=== PATIENT | male | born 1985 | race Caucasian/White ===

== ENCOUNTER 2016-10-22 00:20 | Emergency (ER) | payer OTHER ==
[~2016-10-22] VITALS: Ht 177.8 cm; Wt 99.2 kg
[~2016-10-22 00:20] MED LIST: FACT1KIT IV.
[2016-10-22 00:24] VITALS: TEMP 36.3; Ht 177.8 cm; Wt 99.2 kg
[2016-10-22] MEDS ORDERED: OXYCODONE HCL IR 5 MG TAB (IMMEDIATE RELEASE) PO STA (00:40)
[2016-10-22] MEDS ORDERED: KETOROLAC TROMETHAMINE 60 MG/2 ML VIAL IM STA (00:40)
--- NOTE | 2016-10-22 00:41 | EMERGENCY ROOM VISIT NOTE ---
History Report prepared by Shanaibsade: Duyen Edwards Under the Supervision of: Dr. Jasmyn Huber D.O. First contact with patient: 00:29 Chief Complaint: ALLERGIC REACTION Stated Complaint: ALLERGIC REACTION TO JALAPENOS - HANDS Nursing Triage Summary: Patient ambulatory to triage with an upright and steady gait. Patient has ice packs on his hands. Patient states "While preparing dinner, I cut a lot of jalepenos. About an hour afterwards, my hands started feeling like they're on fire. I took a zyrtec, 1/2 of a percocet, poured alcohol over them, ran them under cold water, put olive oil on them, put ice on them...nothing is helping. My hands are burning and hurting so bad." Patient admits to pouring bleach and windex over his hands as well as applying hemorrhoid cream to them. History of Present Illness The patient is a 31 year old male who presents to the Emergency Room with complaints of constant burning sensation pain to hands from an allergic reaction to jalepenos occurring just prior to arrival. The patient was cutting jalepenos for dinner. After and hour later he began to experience a burning sensation to his hands. He states "my hands feel on fire". The patient notes he tried Zyrtec, 1/2 Percocet, pouring alcohol on, cold water, olive oil, ice, bleach, Windex, and hemorrhoid cream. He notes that cold water and ice are the only items to help subside the burning sensation. He denies any other symptoms at this time. Source of History: patient Onset: just BLEACH [employer]QUOR [employer]KER Position: hand (bilateral) Quality: burning Timing: constant Note: He denies any other symptoms at this time. Review of Systems See HPI for pertinent positives & negatives. A total of 10 systems reviewed and were otherwise negative. Past Medical & Surgical Medical Problems: (1) Hemophilia (2) Hemophilia A Surgical Problems: (1) History of wisdom tooth extraction Family History Patient reports no known family medical history. Social History Smoking Status: Never Smoker Alcohol Use: occasionally Marital Status: single Occupation Status: [employer] student Current/Historical Medications Scheduled Antihemophilic Factor (Recomb) (Eloctate), 4,400 UNITS IV Q4DAYS Allergies Uncoded Allergies: IV MORPHINE (Allergy, Mild, HIVES AT IV SITE, 10/22/16) Physical Exam Vital Signs Date Time Temp Pulse Resp B/P Pulse Ox O2 Delivery O2 Flow Rate FiO2 10/22/16 01:31 66 20 134/86 99 Room Air 10/22/16 00:24 36.3 69 16 123/90 99 Room Air 10/22/16 00:24 99 Room Air Physical Exam HEENT: Head - normocephalic and atraumatic Pupils are equal, round, and reactive to light. Extraocular eye muscles are intact, and sclera are anicteric. Nose - moist nasal mucosa without discharge. Mouth - moist buccal mucosa. Oropharynx is nonerythematous and there is no tonsillar exudate or edema noted. Neck: Supple; no JVD, nuchal rigidity, cervical lymphadenopathy. Heart: Regular rate and rhythm. There is a normal S1 and S2 with no murmurs, clicks, or gallops appreciated. Lungs: Clear to auscultation bilaterally with no wheezes, rales, or rhonchi. Abdomen: Soft, completely nontender, nondistended, with good bowel sounds. There are no palpable pulsatile masses or hepatosplenomegaly. There is no guarding, rigidity, or rebound noted. Extremities: Hands are blanched white, shriveled up from exposure to water, cold to touch as he has been holding ice pack. No evidence of cyanosis, clubbing , or edema. There are easily palpable peripheral pulses. Skin: warm and dry with good turgor and no rashes. Medical Decision & Procedures Medications Administered Medications (Trade) Dose Ordered Sig/Ashleigh Route Start Time Stop Time Status Last Admin Dose Admin Ketorolac Tromethamine (Toradol Inj) 60 mg NOW STAT IM 10/22/16 00:40 10/22/16 00:41 DC 10/22/16 00:47 60 MG Oxycodone HCl (Roxicodone Immediate Rel Tab) 5 mg NOW STAT PO 10/22/16 00:40 10/22/16 00:41 DC 10/22/16 00:47 5 MG Diphenhydramine HCl (Benadryl Inj) 50 mg NOW STAT IM 10/22/16 01:23 10/22/16 01:24 DC 10/22/16 01:28 50 MG Procedure Roxicodone Immediate Rel Tab 5 mg PO, Toradol Inj 60 mg IM,Benadryl Inj 50 mg IM. ED Course 0034: Past medical records reviewed. The patient was evaluated in room B9. A complete history and physical exam was performed. 0040: Roxicodone Immediate Rel Tab 5 mg PO, Toradol Inj 60 mg IM. 0121: The patient is having no relief of his symptoms. 0123: Benadryl Inj 50 mg IM. The patient noted only to have slight improvement in symptoms. We then applied milk to the patient's hands as an antidote to the capsaicin. This did seem to give the patient moderate relief of the symptoms. 0145: Upon reevaluation, hemodynamically stable. I discussed findings and results with him. He verbalized agreement of the treatment plan. He was discharged home. Medical Decision The patient is a 31 year old male who presents to the ED with an allergic reaction. Differential diagnosis includes chemical burn, watson bite. This is a 31-year-old male patient who was cutting jalapeno peppers when he developed severe burning to both of his hands. The patient tried multiple home remedies to treat the symptoms but was unsuccessful. He did have his hand submerged in ice water for extended. A time and they were shriveled up but no obvious signs of watson no watson bite. The patient got moderately for the symptoms here in the emergency department after receiving IM Benadryl and some in his hands and milk. Impression Primary Impression: Allergic reaction Scribe Attestation The scribe's documentation has been prepared under my direction and personally reviewed by me in its entirety. I confirm that the note above accurately reflects all work, treatment, procedures, and medical decision making performed by me. Departure Information Dispostion Home / Self-Care Referrals Saud Odom M.D. (PCP) Forms HOME CARE DOCUMENTATION FORM, IMPORTANT VISIT INFORMATION Patient Instructions My [facility] Additional Instructions Rest You can use motrin and/or benadryl for continued burning.
[2016-10-22] MEDS ORDERED: DiphenhydrAMINE HCL 50 MG/ML VIAL IM STA (01:23)
[2016-10-22 01:31] VITALS: BP 134/86; PULSE 66; O2SAT 99
[2016-10-22] MEDS ORDERED: ANTI IV (01:32)
== END 2016-10-22 02:04 | disposition home or self-care (01) ==
LOC: C.EDB 00:21
DX: T78.40XA Allergy, unspecified, initial encounter (principal); X58.XXXA Exposure to other specified factors, initial encounter; D66 Hereditary factor VIII deficiency; Z79.899 Other long term (current) drug therapy

== ENCOUNTER → 2017-08-11 | Outpatient (CLI) | payer OTHER ==
[~2017-08-11] MED LIST changes: +ANTI IV; -FACT1KIT IV.
== END | disposition home or self-care (01) ==
LOC: C.PATHSPEC 15:52
PROVIDERS: ATTEND Ophthalmology
DX: H02.821 Cysts of right upper eyelid (principal); H02.89 Other specified disorders of eyelid

== ENCOUNTER 2017-09-14 11:47 | Emergency (ER) | payer OTHER ==
[~2017-09-14] VITALS: Ht 177.8 cm; Wt 88.0 kg
[2017-09-14 11:58] VITALS: TEMP 36.8; Ht 177.8 cm; Wt 88.0 kg
[2017-09-14] MEDS ORDERED: MULTTAB58 PO (12:08)
[2017-09-14] MEDS ORDERED: FACT1KIT IV (12:08)
[2017-09-14] MEDS ORDERED: CITA20TA4 PO (12:08)
[2017-09-14] MEDS ORDERED: FACTOR 8 IV (12:10)
[2017-09-14 12:57] LABS: BASO % 0.5 %; BASO ABS # 0.03 K/uL (0-0.2); EOS % 3.8 %; EOS ABS # 0.25 K/uL (0-0.5); HEMATOCRIT 45.1 % (42-52); HEMOGLOBIN 15.8 g/dL (14.0-18.0); IG# 0.07 K/uL (0.00-0.02); LYMPH % 31.7 %; LYMPH ABS # 2.09 K/uL (1.2-3.4); MEAN CELL VOLUME 85.4 fL (80-100); MEAN CORPUSCULAR HEMOGLOBIN 29.9 pg (25-34); MEAN PLATELET VOLUME 10.6 fL (7.4-10.4); MONO % 7.3 %; MONO ABS # 0.48 K/uL (0.11-0.59); NEUT % 55.6 %; NEUT ABS # 3.68 K/uL (1.4-6.5); PLATELET COUNT 186 K/uL (130-400); RED CELL DISTRIBUTION WIDTH SD 40.6 fL (36.4-46.3)
[2017-09-14 13:11] LABS: CALCIUM 9.4 mg/dl (8.5-10.1); CREATININE 1.03 mg/dl (0.60-1.40); POTASSIUM 3.9 mmol/L (3.5-5.1); PTT PATIENT 37.3 SECONDS (21.0-31.0)
[2017-09-14 13:15] LABS: TOTAL PROTEIN 7.9 gm/dl (6.4-8.2)
--- NOTE | 2017-09-14 13:36 | DIAGNOSTIC IMAGING REPORT ---
ABDOMEN LIMITED (US) CLINICAL HISTORY: 32 years-old Male presenting with l lower back pain ? hematoma . TECHNIQUE: Real-time grayscale Doppler ultrasound imaging of the left lower back/flank was performed for a focused evaluation at the site of clinical concern. Color Doppler ultrasound imaging was also performed. COMPARISON: None. FINDINGS: At the site of clinical concern in the left lower back, no sonographic abnormality. No hyperemia on color Doppler. No fluid. No evidence of hematoma. Normal echogenicity of the musculature and subcutaneous fat. IMPRESSION: 1. No sonographic abnormality at the site of clinical concern. Electronically signed by: Wayne Ortiz M.D. 09/14/2017 1:35 PM Dictated Date/Time: 09/14/2017 1:34 PM
[2017-09-14] MEDS ORDERED: OPTIRAY 320 IV PRN (13:45)
--- NOTE | 2017-09-14 14:25 | DIAGNOSTIC IMAGING REPORT ---
ABDOMEN AND PELVIS CT WITH IV CONTRAST CT DOSE: 454.44 mGy.cm HISTORY: Acute left-sided low back pain L lower back pain. hemoph A TECHNIQUE: Multiaxial CT images of the abdomen and pelvis were performed following the use of intravenous contrast. A dose lowering technique was utilized adhering to the principles of ALARA. COMPARISON STUDY: Abdominal ultrasound of same day. FINDINGS: Mild dependent subsegmental bibasilar atelectasis. There is no pneumatosis or pneumoperitoneum identified. The imaged inferior cardiac chambers are unremarkable. Trace pericardial effusion. Gallbladder is mildly contracted. The liver, spleen, pancreas and adrenal glands are within normal limits. Kidneys, ureters and bladder are unremarkable. Aorta is normal in course and caliber. No bulky adenopathy. No bowel obstruction or focal bowel wall thickening. The appendix appears normal. No ascites or mesenteric inflammatory changes. Tiny fat filled periumbilical hernia. The bones appear intact. IMPRESSION: 1. No acute intra-abdominal or intrapelvic abnormality identified. Normal appendix. 2. No bowel obstruction or focal bowel wall thickening. Electronically signed by: Chance Brooks M.D. 09/14/2017 2:24 PM Dictated Date/Time: 09/14/2017 2:09 PM
[2017-09-14] MEDS ORDERED: CYCL10TA6 PO (15:04)
[2017-09-14] MEDS ORDERED: PRED50TA PO (15:04)
[2017-09-14 15:16] VITALS: BP 111/80; PULSE 66; O2SAT 97
--- NOTE | 2017-09-14 15:22 | EMERGENCY ROOM VISIT NOTE ---
History Report prepared by Madelyn: Brian Frazier Under the Supervision of: Dr. Ricky Parr D.O. First contact with patient: 12:20 Chief Complaint: PAIN (GENERALIZED) Stated Complaint: SEVERE HEMOPHILIA A, MUSCLE PAIN History of Present Illness The patient is a 32 year old male who presents to the Emergency Room with complaints of constant lower back pain beginning four days ago. He has a history of Hemophilia A. The patient states that he used the elliptical for the first time in a long time four days ago and believes he strained his back. He states that his pain continued the next day, so he took his normal dose of 4600 units of Eloctate. He took another dose of factor two days ago. His pain improved yesterday, and returned today. The patient denies recent falls or trauma. He states that his symptoms are identical with previous bleeding pain he has had in the past. He has had 5-6 bouts of "significant" internal bleeding in the past. Pt denies headache, dizziness, fevers, chest pain, shortness of breath, nausea, vomiting, diarrhea, pain with urination, and melena. Nothing has improved his pain. Source of History: patient Onset: Four days ago Position: back (lower) Quality: other (identical with previous bleeding pain) Timing: constant Modifying Factors (Relieving): other (none) Associated Symptoms: No fevers, No headache, No chest pain, No SOB, No nausea, No vomiting, No melena, No diarrhea, No urinary symptoms Review of Systems See HPI for pertinent positives & negatives. A total of 10 systems reviewed and were otherwise negative. Past Medical & Surgical Medical Problems: (1) Hemophilia (2) Hemophilia A Surgical Problems: (1) History of wisdom tooth extraction Family History Patient reports no known family medical history. Social History Smoking Status: Never Smoker Alcohol Use: occasionally Marital Status: single Occupation Status: [employer] student Current/Historical Medications Scheduled Citalopram Hydrobromide (Citalopram Hydrobromide), 20 MG PO DAILY Cyclobenzaprine Hcl (Flexeril), 5 MG PO TID Multiple Vitamin (Multivitamin), 1 TAB PO Q2D Prednisone (Prednisone), 50 MG PO DAILY [Factor 8], 1 DOSE IV Q4DAYS Allergies Uncoded Allergies: IV MORPHINE (Allergy, Mild, HIVES AT IV SITE, 10/22/16) Physical Exam Vital Signs Date Time Temp Pulse Resp B/P (MAP) Pulse Ox O2 Delivery O2 Flow Rate FiO2 09/14/17 15:16 66 20 111/80 97 09/14/17 13:40 74 18 121/79 97 Room Air 09/14/17 11:58 36.8 72 16 137/83 96 Room Air Physical Exam GENERAL: Sitting up on edge of bed, alert, well appearing, well nourished, no distress, non-toxic EYE EXAM: normal conjunctiva. OROPHARYNX: no exudate, no erythema, lips, buccal mucosa, and tongue normal and mucous membranes are moist NECK: supple, no nuchal rigidity, no adenopathy, non-tender LUNGS: Clear to auscultation. Normal chest wall mechanics HEART: no murmurs, S1 normal and S2 normal ABDOMEN: abdomen soft, non-tender, normo-active bowel sounds, no masses, no rebound or guarding. BACK: mild left lower paraspinal tenderness on exam. SKIN: no rashes and no bruising UPPER EXTREMITIES: upper extremities are grossly normal. LOWER EXTREMITIES: No pitting edema. NEURO EXAM: Normal sensorium, cranial nerves II-XII grossly intact, normal speech, no gross weakness of arms, no gross weakness of legs. Medical Decision & Procedures ER Provider Diagnostic Interpretation: Radiology results as stated below per my review and the radiologist's interpretation: ABDOMEN LIMITED (US) FINDINGS: At the site of clinical concern in the left lower back, no sonographic abnormality. No hyperemia on color Doppler. No fluid. No evidence of hematoma. Normal echogenicity of the musculature and subcutaneous fat. IMPRESSION: 1. No sonographic abnormality at the site of clinical concern. Electronically signed by: Wayne Ortiz M.D. 09/14/2017 1:35 PM A[address]OMEN AND PELVIS CT WITH IV CONTRAST FINDINGS: Mild dependent subsegmental bibasilar atelectasis. There is no pneumatosis or pneumoperitoneum identified. The imaged inferior cardiac chambers are unremarkable. Trace pericardial effusion. Gallbladder is mildly contracted. The liver, spleen, pancreas and adrenal glands are within normal limits. Kidneys, ureters and bladder are unremarkable. Aorta is normal in course and caliber. No bulky adenopathy. No bowel obstruction or focal bowel wall thickening. The appendix appears normal. No ascites or mesenteric inflammatory changes. Tiny fat filled periumbilical hernia. The bones appear intact. IMPRESSION: 1. No acute intra-abdominal or intrapelvic abnormality identified. Normal appendix. 2. No bowel obstruction or focal bowel wall thickening. Electronically signed by: Chance Brooks M.D. 09/14/2017 2:24 PM Laboratory Results 09/14/17 12:40 Red Blood Count 5.28, Mean Corpuscular Volume 85.4, Mean Corpuscular Hemoglobin 29.9, Mean Corpuscular Hemoglobin Concent 35.0, Mean Platelet Volume 10.6, Neutrophils (%) (Auto) 55.6, Lymphocytes (%) (Auto) 31.7, Monocytes (%) (Auto) 7.3, Eosinophils (%) (Auto) 3.8, Basophils (%) (Auto) 0.5, Neutrophils # (Auto) 3.68, Lymphocytes # (Auto) 2.09, Monocytes # (Auto) 0.48, Eosinophils # (Auto) 0.25, Basophils # (Auto) 0.03 09/14/17 12:40 Test 09/14/17 12:40 09/14/17 13:35 White Blood Count 6.60 K/uL (4.8-10.8) Red Blood Count 5.28 M/uL (4.7-6.1) Hemoglobin 15.8 g/dL (14.0-18.0) Hematocrit 45.1 % (42-52) Mean Corpuscular Volume 85.4 fL (80-100) Mean Corpuscular Hemoglobin 29.9 pg (25-34) Mean Corpuscular Hemoglobin Concent 35.0 g/dl (32-36) Platelet Count 186 K/uL (130-400) Mean Platelet Volume 10.6 fL (7.4-10.4) Neutrophils (%) (Auto) 55.6 % Lymphocytes (%) (Auto) 31.7 % Monocytes (%) (Auto) 7.3 % Eosinophils (%) (Auto) 3.8 % Basophils (%) (Auto) 0.5 % Neutrophils # (Auto) 3.68 K/uL (1.4-6.5) Lymphocytes # (Auto) 2.09 K/uL (1.2-3.4) Monocytes # (Auto) 0.48 K/uL (0.11-0.59) Eosinophils # (Auto) 0.25 K/uL (0-0.5) Basophils # (Auto) 0.03 K/uL (0-0.2) RDW Standard Deviation 40.6 fL (36.4-46.3) RDW Coefficient of Variation 13.0 % (11.5-14.5) Immature Granulocyte % (Auto) 1.1 % Immature Granulocyte # (Auto) 0.07 K/uL (0.00-0.02) Prothrombin Time 10.7 SECONDS (9.0-12.0) Prothromb Time International Ratio 1.0 (0.9-1.1) Activated Partial Thromboplast Time 37.3 SECONDS (21.0-31.0) Partial Thromboplastin Ratio 1.4 Anion Gap 5.0 mmol/L (3-11) Est Creatinine Clear Calc Drug Dose 115.0 ml/min Estimated GFR () 110.9 Estimated GFR (Non- 95.7 BUN/Creatinine Ratio 10.1 (10-20) Calcium Level 9.4 mg/dl (8.5-10.1) Total Bilirubin 0.9 mg/dl (0.2-1) Direct Bilirubin 0.2 mg/dl (0-0.2) Aspartate Amino Transf (AST/SGOT) 17 U/L (15-37) Alanine Aminotransferase (ALT/SGPT) 23 U/L (12-78) Alkaline Phosphatase 66 U/L (45-117) Total Protein 7.9 gm/dl (6.4-8.2) Albumin 4.0 gm/dl (3.4-5.0) Lipase 124 U/L (73-393) Urine Color YELLOW Urine Appearance CLEAR (CLEAR) Urine pH 5.5 (4.5-7.5) Urine Specific [place] >= 1.030 (1.000-1.030) Urine Protein NEG (NEG) Urine Glucose (UA) NEG (NEG) Urine Ketones NEG (NEG) Urine Occult Blood NEG (NEG) Urine Nitrite NEG (NEG) Urine Bilirubin NEG (NEG) Urine Urobilinogen NEG (NEG) Urine Leukocyte Esterase NEG (NEG) Laboratory results per my review. Medications Administered Medications (Trade) Dose Ordered Sig/Ashleigh Route Start Time Stop Time Status Last Admin Dose Admin Prednisone (PredniSONE TAB) 60 mg NOW STAT PO 09/14/17 15:05 09/14/17 15:06 DC 09/14/17 15:10 60 MG ED Course ED COURSE: Vital signs were reviewed and appeared normal. The patients medical record was reviewed The above diagnostic studies were performed and reviewed. ED treatments and interventions as stated above. 1223: The patient was evaluated in room B2. A complete history and physical examination was performed. 1430: I reviewed the patient's imaging studies with the radiologist. 1500: Upon reevaluation, the patient is resting comfortably. I discussed my findings with the patient and he understands and agrees with the treatment plan. Based on the patients age, coexisting illnesses, exam and lab findings the decision to treat as an outpatient was made. The patient remained stable while under my care. The patient appeared well at the time of discharge. Medical Decision Differential diagnoses includes but is not limited to lumbar radiculopathy, kidney stone, muscle strain, facture, cauda equina, mass, and disc herniation. Patient is a 32-year-old male who was on the elliptical on Tuesday and felt a severe sharp pain in his left lower back. He is a hemophilia type a less than 1 % who has been giving himself factor VIII on Tuesday and Tuesday. He did have some improvement with this. He was referred in by his physician at [facility]. Recommended ultrasound and CT. Both were negative. CBC along with BMP, LFTs, bilirubin lipase are unremarkable. PTT was elevated as expected. No pain meds given as patient had to drive. He was discharged after discussion with his hemophiliac DrIsa on Flexeril and steroids. No signs of cauda equina. No numbness in his groin. No weakness in the legs. He will follow-up as an outpatient as I favor this likely muscle skeletal in origin with a negative CT and ultrasound. Discussed with Pt concerning signs and symptoms to watch out for. Pt was instructed to follow up with their PCP and discussed with the patient their option to return to the ED at anytime for persistent or worsening symptoms. The appropriate anticipatory guidance and out- patient management, including indications for return to the emergency department , were explained at length to the patient and understood. Medication Reconcilliation Current Medication List: was personally reviewed by me Blood Pressure Screening Patient's blood pressure: Normal blood pressure Blood pressure disposition: Did not require urgent referral Consults Time Called: 1431 Consulting Physician: [facility] Returned Call: [phone] I reviewed the patient's case with Dr. Ulloa. He will review the patient's case with the [facility] and call back. Additional Consults: Consulted Physician: Dr. Melgar - [facility] Returned Call: [phone] Additional Comments: I reviewed the patient's case with Dr. Melgar. He recommends the patient be placed on steroids and Flexeril. He recommends outpatient follow up. Impression Primary Impression: Back pain Additional Impression: Hemophilia A Scribe Attestation The scribe's documentation has been prepared under my direction and personally reviewed by me in its entirety. I confirm that the note above accurately reflects all work, treatment, procedures, and medical decision making performed by me. Departure Information Dispostion Home / Self-Care Prescriptions Prednisone (Prednisone) 50 Mg Tab 50 MG PO DAILY for 4 Days, TAB Prov: Ricky Parr, DO 09/14/17 Cyclobenzaprine Hcl (FLEXERIL) 10 Mg Tab 5 MG PO TID for Pain for 3 Days Prov: Ricky Parr, DO 09/14/17 Referrals No Doctor, Assigned (PCP) Forms HOME CARE DOCUMENTATION FORM, IMPORTANT VISIT INFORMATION, WORK / SCHOOL INSTRUCTIONS Patient Instructions Back Pain - [facility], My [facility] Additional Instructions Please follow up with your primary care doctor and core baker/hemophilia Dr. with in the next 24 hours. Any worsening of your symptoms, please return to the ED immediately. This includes any fevers greater than 100.4, worsening pain , chest pain, shortness breath, persistent nausea, vomiting, weakness or numbness in her legs, numbness in her groin, unable to eat or drink, or any other concerning signs or symptoms from your standpoint. You were given medications during this visit that will inhibit your ability to drive, operate machinery and work called flexeril. Please do NOT drive, operate machinery or work for the next 12hrs. You were also given a prescription for a narcotic. While taking this medication you should also not drive, operate machinery and or work. Problem Qualifiers Primary Impression: Back pain Back pain location: low back pain Chronicity: acute Back pain laterality: left Sciatica presence: without sciatica Qualified Codes: M54.5 - Low back pain
== END 2017-09-14 15:15 | disposition home or self-care (01) ==
LOC: C.EDB 11:49
DX: M54.5 Low back pain (principal); D66 Hereditary factor VIII deficiency; Z88.5 Allergy status to narcotic agent